=== PATIENT | male | born 1970 | race Caucasian/White ===

== ENCOUNTER 2018-04-28 13:41 | Inpatient (IN) ==
[2018-04-28] MEDS ORDERED: Isovue-370 500 ML INFUS..BTL IV ONE (14:17)
--- NOTE | 2018-04-28 14:17 | Emergency Department Note ---
Disposition Clinical Impression: Abscess of skin or subcutaneous tissue Qualifiers: Site of cutaneous abscess: neck Qualified Code(s): L02.11 - Cutaneous abscess of neck Cellulitis Qualifiers: Site of cellulitis: neck Qualified Code(s): L03.221 - Cellulitis of neck Disposition: Admitted As Inpatient Condition: Good Time of Disposition: 16:40 General Adult HPI - General Chief complaint: ED Skin/Abscess/Foreign Body Stated complaint: staph infection posterior neck Time Seen by Provider: 04/28/18 14:04 Source: patient Mode of arrival: ambulatory Limitations: no limitations Nursing Notes Reviewed: Yes Vital Signs Reviewed: Yes - History of Present Illness HPI Narrative: 48 yo male presents to the ED from home with an abscess on the back of his neck. He has a PMHx of [place] and previous staph infections. He went to his physician on Tuesday and was prescribed Bactrim and has been taking it as prescribed since then. He reports attempted drainage at the office on Tuesday and Tuesday without any fluid removed. He claims the abscess is not getting worse but it has not improved with antibiotics. He reports feeling chilled and sweating at home but has no recorded fevers. He denies chest pain, abdominal pain, N/V/D. He has had some shortness of breath that he attributes to pain. He also has had some throat pain but no trouble with swallowing. He denies numbness or tingling in his hands. Pain Scale: 3 - Related Data Home Medications Medication Instructions Recorded Confirmed Aspirin 81 mg PO DAILY 02/11/15 02/11/15 Atorvastatin Calcium 40 mg PO DAILY 02/11/15 02/11/15 Carvedilol 12.5 mg PO BID 02/11/15 02/11/15 Clopidogrel 75 mg PO DAILY 02/11/15 02/11/15 Losartan 25 mg PO DAILY 02/11/15 02/11/15 Allergies Allergy/AdvReac Type Severity Reaction Status Date / Time No Known Allergies Allergy Verified 04/28/18 13:43 All systems ED: reviewed and negative except as stated. Review of Systems: As Per HPI Constitutional: Reports: chills. Denies: fever, weakness Eyes: Denies: vision change ENT ED: Reports: throat pain Cardiovascular: Denies: chest pain, palpitations, dyspnea on exertion Respiratory: Denies: cough, dyspnea, wheezes Gastrointestinal: Denies: abdominal pain, nausea, vomiting Musculoskeletal: Reports: neck pain. Denies: back pain Integumentary: Denies: rash Neurological: Denies: headache, numbness, paresthesias, confusion Psychiatric: Denies: anxiety Endocrine: Denies: fatigue Hematological/Lymphatic: Denies: easy bleeding, lymphadenopathy Past Medical History - Past Medical History Medical history: Reports: coronary artery disease, hyperlipidemia, hypertension, myocardial infarction Psychiatric history: Reports: no psych history - Social History Smoking Status: Never smoker Smokeless Tobacco Status: No Alcohol use: Reports: occasionally Drug use: Reports: none Physical Exam - General Limitations: no limitations General appearance: alert, in no apparent distress - Head Head exam: atraumatic, normocephalic - Eye Eye exam: Present: normal appearance, PERRL, EOMI - ENT ENT exam: normal exam, normal oropharynx, mucous membranes moist - Neck Neck exam: Present: tenderness, other (large 13cm by 7.5cm area of erythema to posterior neck, indurated, with a scabbed over area centrally without active draineage). Absent: meningismus, lymphadenopathy - Chest Chest inspection: Present: normal inspection - Respiratory Respiratory exam: Present: normal lung sounds bilaterally. Absent: respiratory distress, wheezes - Cardiovascular Cardiovascular exam: Present: regular rate, normal rhythm - Abdominal Exam Abdominal exam: Present: soft, Non-Tender. Absent: distention, guarding, rebound, rigidity - Extremities Exam Extremities exam: Present: normal inspection. Absent: tenderness, pedal edema - Neurological Exam Neurological exam: Present: alert, oriented X3, CN II-XII intact - Psychiatric Psychiatric exam: Present: normal affect, normal mood - Skin Skin exam: Present: warm, dry, intact Course Vital Signs Temperature 99.1 F 04/28/18 13:43 Pulse Rate 91 04/28/18 13:43 Respiratory Rate 20 04/28/18 13:43 Blood Pressure 152/96 04/28/18 13:43 O2 Sat by Pulse Oximetry 97 04/28/18 13:43 Temperature 99.1 F 04/28/18 13:54 Pulse Rate 91 04/28/18 13:54 Respiratory Rate 20 04/28/18 13:54 Blood Pressure 152/96 04/28/18 13:54 O2 Sat by Pulse Oximetry 97 04/28/18 13:54 Oxygen Delivery Oxygen Delivery Room Air Medical Decision Making - MDM Narrative Medical decision making narrative: Due to the large area of erythema, area of infection, and failure of outpt antibiotics we will do a CT of the soft tissues of his neck looking for deeper abscess. We will also draw CBC, BMP, and blood cultures and give him a dose of vancomycin. The patient will likely be admitted for continued IV antibiotics. 1600 - lab work has returned unremarkable. Awaiting CT scan. 1625 - CT scan showed cellulitis along his posterior neck with a small abscess measuring appx [id number]. There is also an associated right mastoid effusion. Hospitalist has been paged for admission. 1640 - Dr. Alejandra has accepted the pt for IV abx. - Medical Records Medical records reviewed: Yes I reviewed the patient's medical records. - Lab Data Lab results reviewed: Yes I reviewed the patient's lab results. Result diagrams: 04/28/18 14:41 04/28/18 14:41 Lab Results 04/28/18 04/28/18 Range/Units 14:41 14:41 WBC 11.9 H (4.3-11.1) K/mcL RBC 4.85 (4.19-5.50) M/mcL Hgb 14.4 (12.9-16.9) g/dL Hct 41.5 (37.5-50.1) % MCV 85.6 (83.0-100.0) fL MCH 29.7 (28.0-33.3) pg MCHC 34.7 (31.6-35.5) g/dL RDW 12.6 (11.5-14.5) % Plt Count 206 (140-400) K/mcL MPV 9.5 (9.4-12.4) fL Immature Gran % 0.4 (0-4) % Seg Neutrophils % 72.9 % Lymphocytes % 12.7 % Monocytes % 10.1 % Eosinophils % 3.5 % Basophils % 0.4 % Neutrophils # 8.7 (1.6-8.9) K/mcL Lymphocytes # 1.5 (0.6-4.6) K/mcL Monocytes # 1.2 (0.0-1.3) K/mcL Eosinophils # 0.4 (0.0-0.6) K/mcL Basophils # 0.1 (0.0-0.2) K/mcL Sodium 135 L (136-145) mEq/L Potassium 4.0 (3.5-5.1) mEq/L Chloride 101 (98-107) mEq/L Carbon Dioxide 28 (23-29) mEq/L BUN 14 (6-20) mg/dL Creatinine 1.07 (0.70-1.30) mg/dL Est GFR ( Amer) > 60 (> 60) Est GFR (Non-Af Amer) > 60 (> 60) BUN/Creatinine Ratio 13 (6-26) Glucose 169 H (70-105) mg/dL Calculated Osmolality 284 (280-300) Calcium 9.6 (8.6-10.3) mg/dL - Radiology Data Radiology results reviewed: Yes I reviewed the patient's radiology results. Attestation Statement - Attestation Attestation: Resident Attestation: I examined this patient and my medical decision making was reviewed with the Resident Physician. I agree with the documented findings, disposition and treatment plan as described except to the extent set forth below. We independently had [id number] contact with the patient. Patient seen with resident physician Dr. Guillen (Senior Resident) and Dr. Meza (Eliezer Resident). Please see resident note for further details and disposit ionArley Jacobs presents today for evaluation of cellulitis the back of his neck. Significant induration. A did have I&D attempted at outside hospital without significant pus drainage. Patient was placed on Bactrim on Tuesday without any improvement. Bedside measuring shows 13 centimeters by 7.[address] scan will be performed to rule out abscess as well as other complication. Patient will be started on vancomycin. Patient will require admission first significant cellulitis that has failed outpatient management.
[2018-04-28 15:07] LABS: Basophils # 0.1 K/mcL (0.0-0.2); Basophils % 0.4 %; Eosinophils # 0.4 K/mcL (0.0-0.6); Eosinophils % 3.5 %; Hematocrit 41.5 % (37.5-50.1); Hemoglobin 14.4 g/dL (12.9-16.9); Immature Granulocytes % 0.4 % (0-4); Lymphocytes # 1.5 K/mcL (0.6-4.6); Lymphocytes % 12.7 %; Mean Corpuscular HGB Conc 34.7 g/dL (31.6-35.5); Mean Corpuscular Hemoglobin 29.7 pg (28.0-33.3); Mean Corpuscular Volume 85.6 fL (83.0-100.0); Mean Platelet Volume 9.5 fL (9.4-12.4); Monocytes # 1.2 K/mcL (0.0-1.3); Monocytes % 10.1 %; Neutrophils # 8.7 K/mcL (1.6-8.9); Platelet Count 206 K/mcL (140-400); Red Blood Count 4.85 M/mcL (4.19-5.50); Red Cell Distribution Width 12.6 % (11.5-14.5); Segmented Neutrophils % 72.9 %
[2018-04-28 15:27] LABS: BUN/Creatinine Ratio 13 (6-26); Blood Urea Nitrogen 14 mg/dL (6-20); Calcium 9.6 mg/dL (8.6-10.3); Carbon Dioxide 28 mEq/L (23-29); Chloride 101 mEq/L (98-107); Glucose 169 mg/dL (70-105); Osmolality,Calculated 284 (280-300); Sodium 135 mEq/L (136-145); eGFR For Non-African Americans > 60 (> 60)
[2018-04-28] MEDS ORDERED: *HR* FentaNYL (PF) 100 MCG/2 ML VIAL IVP ONE (16:40)
--- NOTE | 2018-04-28 16:59 | Internal Med History&Physical ---
Date of Encounter: 04/28/18 Time of Encounter: 16:56 Internal Medicine - H&P: HPI Chief complaint: neck ceelulitis Admitted From: Emergency Dept Plans for Post Hospital Care: Home History of present illness: Mr. Goodman is a 48 year old male Patient with history of morbid obesity, CAD had a angioplasty stent placement a bout 3 years ago, CMP EF 45%, hypertension, high cholesterol, prior staph infection patient was seen by primary physician in the office with the abscess in the back of his neck attempt drainage on Tuesday and then placed him on Bactrim and then repeat attempt of drainage on Tuesday but infection is not getting better patient is decided to come to the emergency room. Also has some chills and sweats CT of the neck shows extensive cellulitis but small abscess not enough for drainage patient started on vancomycin and is being admitted white count 11.9 labs unremarkable Past Med Surg Social Fam HX - Past Medical History Medical history: coronary artery disease, hyperlipidemia, hypertension, myocardial infarction Psychiatric history: no psych history - Social History Smoking Status: Never smoker Smokeless Tobacco Status: No Alcohol use: occasionally Drug use: none - Family History Mother Adopted: No Family Member Ethnicity: Non- Living Status: Still Living Hx Family Cardiac Disorders: No Hx Family Respiratory Disorders: No Hx Family Cancer: No Hx Family GI Disorders: No Hx Family Endocrine Disorder: No Hx Family Neuromuscular Disorders: No Hx Family Neurologic Disorders: No Hx Family HEENT Disorders: No Hx Family Autoimmune Disorders: No Internal Medicine - H&P: Meds Aspirin 81 mg PO DAILY 02/11/15 [History] Atorvastatin Calcium 40 mg PO DAILY 02/11/15 [History] Carvedilol 12.5 mg PO BID 02/11/15 [History] Clopidogrel 75 mg PO DAILY 02/11/15 [History] Losartan 25 mg PO DAILY 02/11/15 [History] Allergy/AdvReac Type Severity Reaction Status Date / Time No Known Allergies Allergy Verified 04/28/18 13:43 All Systems PM: A 10-system review of systems was performed and is negative for pertinent findings except as documented above in the HPI. - Constitutional Vitals: Temp Pulse Resp BP Pulse Ox 99.1 F 91 20 152/96 97 04/28/18 13:54 04/28/18 13:54 04/28/18 13:54 04/28/18 13:54 04/28/18 13:54 General appearance: Present: A&O X 3, obese Exam: done - Eye Eye exam: Present: PERRL, conjuntiva pink, sclera anicteric Pupils: Present: PERRL - Neck Neck exam general surgery: Present: tenderness Additional comments: cellulitis back of neck - Respiratory Respiratory exam: Present: CTAB. Absent: accessory muscle use, rales, rhonchi, wheezes - Cardiovascular Cardiovascular exam: Present: RRR, +S1, +S2. Absent: diastolic murmur, gallop, rubs, systolic murmur - Extremities Exam Extremities exam: Present: warm, radial pulses palpable and symmetrical. Absent: calf tenderness, cyanotic, pedal edema Internal Med - H&P Results - Labs CBC & Chem 7: 04/28/18 14:41 04/28/18 14:41 Labs: Short CBC 04/28/18 Range/Units 14:41 WBC 11.9 H (4.3-11.1) K/mcL Hgb 14.4 (12.9-16.9) g/dL Hct 41.5 (37.5-50.1) % Plt Count 206 (140-400) K/mcL Neutrophils # 8.7 (1.6-8.9) K/mcL BMP 04/28/18 14:41 Sodium 135 L Potassium 4.0 Chloride 101 Carbon Dioxide 28 BUN 14 Creatinine 1.07 Glucose 169 H Calcium 9.6 - Impressions ITS Impressions Soft Tissue Neck CT 04/28/18 14:17 IMPRESSION: 1. Extensive cellulitis along the posterior midline of the neck extending from the occiput down to the level of C5. There may be a small abscess noted along the dorsal midline of the skin, at the level of C1-C2 measuring approximately 6 x 5 x 5 mm. 2. There are several prominent bilateral posterior triangle lymph nodes, presumably reactive. 3. Right mastoid effusion. D/ / 04/28/2018 16:24:25 Chapincito Spicer MD / [facility] Interpreting Provider: Chapincito Spicer MD - Assessment and plan (1) Cellulitis Current Visit: Yes Status: Acute Assessment and plan: Extensive cellulitis with small abscess in the back of his neck there likely is secondary to staph infection patient started on vancomycin Qualifiers: Site of cellulitis: neck Qualified Code(s): L03.221 - Cellulitis of neck (2) CAD (coronary artery disease) Current Visit: Yes Status: Chronic Assessment and plan: No chest pain Qualifiers: Coronary Disease-Associated Artery/Lesion type: [place] artery [place] vs. transplanted heart: [place] heart Associated angina: without angina Qualified Code(s): I25.10 - Atherosclerotic heart disease of [place] coronary artery without angina pectoris (3) HTN (hypertension) Current Visit: Yes Status: Chronic Assessment and plan: Chronic and not well-controlled we will adjust home medication Qualifiers: Hypertension type: essential hypertension Qualified Code(s): I10 - Essential (primary) hypertension (4) Morbid obesity Current Visit: Yes Status: Chronic Assessment and plan: Chronic due to excess caloric intake (5) Hyperlipidemia Current Visit: Yes Status: Chronic Assessment and plan: Resume home medication Qualifiers: Hyperlipidemia type: pure hypercholesterolemia Qualified Code(s): E78.00 - Pure hypercholesterolemia, unspecified; E78.0 - Pure hypercholesterolemia (6) Abscess of skin or subcutaneous tissue Current Visit: Yes Status: Acute Assessment and plan: Patient started on vancomycin which check hemoglobin A1c make sure he is not diabetic Qualifiers: Site of cutaneous abscess: neck Qualified Code(s): L02.11 - Cutaneous abscess of neck - Time Spent With Patient Total time spent is greater than 50% in coordination of care (as documented) at patient's floor/unit and/or counseling patient:
[2018-04-28] MEDS ORDERED: Naloxone 0.4 MG/ML INJ IVP PRN (17:04)
[2018-04-28 20:03] LABS: Estimated Average Glucose 137 mg/dl; Hemoglobin A1C 6.4 %
[2018-04-28] MEDS: traMADol 50 MG TABLET PO PRN (20:20)
[2018-04-29] MEDS: Acetaminophen 325 MG TABLET PO PRN ×2 (00:11→15:57)
[2018-04-29 04:28] LABS: Hematocrit 38.6 % (37.5-50.1); Hemoglobin 13.1 g/dL (12.9-16.9); Mean Corpuscular HGB Conc 33.9 g/dL (31.6-35.5); Mean Corpuscular Hemoglobin 29.4 pg (28.0-33.3); Mean Corpuscular Volume 86.7 fL (83.0-100.0); Mean Platelet Volume 9.4 fL (9.4-12.4); Platelet Count 208 K/mcL (140-400); Red Blood Count 4.45 M/mcL (4.19-5.50); Red Cell Distribution Width 12.7 % (11.5-14.5)
[2018-04-29 04:48] LABS: Alanine Aminotransferase 23 Units/L (7-52); Albumin/Globulin Ratio 1.3 (1.1-2.2); Alkaline Phosphatase 58 Units/L (34-104); Aspartate Amino Transferase 13 Units/L (13-39); BUN/Creatinine Ratio 12 (6-26); Bilirubin,Total 0.7 mg/dL (0.3-1.0); Blood Urea Nitrogen 14 mg/dL (6-20); Calcium 9.2 mg/dL (8.6-10.3); Carbon Dioxide 26 mEq/L (23-29); Chloride 99 mEq/L (98-107); Chol/HDL Ratio 6.8 (0-4.9); Cholesterol 142 mg/dL (< 200); Glucose 150 mg/dL (70-105); HDL Cholesterol 21 mg/dL (40-59); Magnesium 1.8 mg/dL (1.6-2.6); Osmolality,Calculated 279 (280-300); Potassium 4.2 mEq/L (3.5-5.1); Sodium 133 mEq/L (136-145); Triglycerides 445 mg/dL (< 150); eGFR For Non-African Americans > 60 (> 60)
[2018-04-29] MEDS: *HR* Enoxaparin 40 MG/0.4 ML SYRINGE SQ SCH (05:16)
[2018-04-29] MEDS: traMADol 50 MG TABLET PO PRN ×2 (07:07→20:00)
[2018-04-29] MEDS: Aspirin Enteric Coated 81 MG Tablet PO SCH (09:48)
--- NOTE | 2018-04-29 15:08 | Internal Med Progress Note ---
Hospitalist Progress Note - Encounter Date of Encounter: 04/29/18 Time of Encounter: 15:06 - Subjective Interval History: Pt seen and examined in the room, he has no complaints. - Exam Vitals: Temp Pulse Resp BP Pulse Ox 100.6 F H 91 16 135/72 95 04/29/18 14:53 04/29/18 14:53 04/29/18 14:53 04/29/18 14:53 04/29/18 14:53 Exam: PHYSICAL EXAMINATION: GENERAL APPEARANCE: The patient is alert, oriented and in no acute distress. HEENT: Head is normocephalic. The sinuses are nontender. Pupils are equal and reactive. The nares are patent. Oropharynx clear without lesions. NECK: a large lump behind the neck noted. HEART: Regular rate and rhythm. LUNGS: No crackles or wheezes are heard. ABDOMEN: Soft, nontender, nondistended with good bowel sounds heard. Inguinal area is normal. EXTREMITIES: Without cyanosis, clubbing or edema. NEUROLOGICAL: Gross nonfocal. SKIN: Warm and dry without any rash. - Assessment and Plan (1) Cellulitis Current Visit: Yes Status: Acute Assessment and Plan: 48 year old male presented with a large mass-like lesion behind the neck for week, has been seen by PCP, oral antibiotics was prescribed, incision and drainage was attempted, however, no improvement. CT of the head and neck showed diffuse skin and subcutaneous tissue inflammation/swelling, a small sized fluid collection was also detected. - Cellulitis was suspected, we will continue current antibiotics with cefepime and vancomycin. - ENT was consulted, possibly tissue biopsy may needed. - ID was consulted. (2) CAD (coronary artery disease) Current Visit: No Status: Chronic Assessment and Plan: Patient has no chest pain, continue home medication for CAD, continue risk factor modification including BP control, weight control, cholesterol control. (3) HTN (hypertension) Current Visit: No Status: Chronic Assessment and Plan: BP controlled, continue home medications. (4) Morbid obesity Current Visit: No Status: Chronic Assessment and Plan: Weight control. (5) Hyperlipidemia Current Visit: No Status: Chronic Assessment and Plan: Statin dose increased. DVT Prophylaxis: Lovenox. - Time Spent with Patient Total time spent is greater than 50% in coordination of care (as documented) at patient's floor/unit and/or counseling patient: Greater than 35 minutes Plan of Care Discussed with: patient Internal Medicine: Result - Labs CBC & Chem 7: 04/29/18 03:29 04/29/18 03:29 Labs: Short CBC 04/28/18 04/29/18 Range/Units 14:41 03:29 WBC 11.9 H 13.4 H (4.3-11.1) K/mcL Hgb 14.4 13.1 (12.9-16.9) g/dL Hct 41.5 38.6 (37.5-50.1) % Plt Count 206 208 (140-400) K/mcL Neutrophils # 8.7 (1.6-8.9) K/mcL BMP 04/28/18 04/29/18 14:41 03:29 Sodium 135 L 133 L Potassium 4.0 4.2 Chloride 101 99 Carbon Dioxide 28 26 BUN 14 14 Creatinine 1.07 1.15 Glucose 169 H 150 H Calcium 9.6 9.2 Liver Function 04/29/18 Range/Units 03:29 Total Bilirubin 0.7 (0.3-1.0) mg/dL AST 13 (13-39) Units/L ALT 23 (7-52) Units/L Alkaline Phosphatase 58 (34-104) Units/L Albumin 4.0 (3.5-5.7) g/dL - Impressions Impressions Soft Tissue Neck CT 04/28/18 14:17 IMPRESSION: 1. Extensive cellulitis along the posterior midline of the neck extending from the occiput down to the level of C5. There may be a small abscess noted along the dorsal midline of the skin, at the level of C1-C2 measuring approximately 6 x 5 x 5 mm. 2. There are several prominent bilateral posterior triangle lymph nodes, presumably reactive. 3. Right mastoid effusion. D/ / 04/28/2018 16:24:25 Chapincito Spicer MD / located within [facility] Interpreting Provider: Chapincito Spicer MD Consult Discharge Plan - Plan Referrals: Ruperto Clark MD [Primary Care Provider] - (1) Cellulitis Qualifiers: Site of cellulitis: neck Qualified Code(s): L03.221 - Cellulitis of neck (2) CAD (coronary artery disease) Qualifiers: Coronary Disease-Associated Artery/Lesion type: [place] artery [place] vs. transplanted heart: [place] heart Associated angina: without angina Qualified Code(s): I25.10 - Atherosclerotic heart disease of [place] coronary artery without angina pectoris (3) HTN (hypertension) Qualifiers: Hypertension type: essential hypertension Qualified Code(s): I10 - Essential (primary) hypertension (5) Hyperlipidemia Qualifiers: Hyperlipidemia type: pure hypercholesterolemia Qualified Code(s): E78.00 - Pure hypercholesterolemia, unspecified; E78.0 - Pure hypercholesterolemia
[2018-04-29] MEDS: Cefepime HCl 2,000 MG in 0.9 % Sodium Chloride Mini Bag 100 ML IVPB SCH (18:51)
--- NOTE | 2018-04-29 19:04 | ENT - Consult Note ---
Date of Encounter: 04/29/18 Time of Encounter: 19:01 Assessment and Plan (1) Abscess of skin or subcutaneous tissue Current Visit: Yes Status: Acute Small abscess just to the right of the midline of the posterior neck, this area with I&D to the bedside. Please see procedure note. Culture was taken. We will await results but likely will not grow anything is patient has been on multiple antibiotics prior to I&D being performed. Recommend continuing antibiotics and awaiting culture with directed antibiotics if there is growth. This mainly appears a cellulitis. Patient does not know of any trauma to this area. Consider abrasion from having his hair trimmed causing this skin reaction and infection. Would consider placing patient on steroids to reduce the swelling and inflammation but I will leave this to infectious disease will may see him as a likely will want to follow his white count. Qualifiers: Site of cutaneous abscess: neck Qualified Code(s): L02.11 - Cutaneous abscess of neck (2) Cellulitis Current Visit: Yes Status: Acute Area of induration and erythema was demarcated with a skin marker. We will continue to follow for improvement. Qualifiers: Site of cellulitis: neck Qualified Code(s): L03.221 - Cellulitis of neck History of Present Illness Consult date: 04/29/18 Reason for ENT Consult: neck mass (Patient is a 48-year-old male that presented in the ER secondary to swelling of the back of the neck and associated pain. Patient with increased redness and pain for approximately 4 days. Patient presented to a DrArley at [facility] who originally tried incise and drain this area without any purulent drainage obtained. Patient was placed on Bactrim and he presented again with worsening. Patient then went to the emergency room for further evaluation and treatment. CT of the neck was performed which showed significant cellulitis and soft tissue swelling with a small focal abscess that was left in the centimeter measuring approximately 5 mm in greatest dimension. I was consult for evaluation and possible incision and drainage. ID was also asked to see this patient. Plate patient has been placed on antibiotic since he has been admitted. Patient states there is no worsening or improvement in his pain or swelling. Patient denies any fevers. Patient denies any trauma to the area or any bug bites. Patient does not know of any inciting factor.) Past Med Surg Social Fam HX - Past Medical History Medical history: coronary artery disease, hyperlipidemia, hypertension, myocardial infarction Psychiatric history: no psych history - Past Surgical History Additional surgical history: STENT - Social History Smoking Status: Never smoker Smokeless Tobacco Status: No Alcohol use: occasionally Drug use: none - Family History Mother Adopted: No Family Member Ethnicity: Non- Living Status: Still Living Hx Family Cardiac Disorders: No Hx Family Respiratory Disorders: No Hx Family Cancer: No Hx Family GI Disorders: No Hx Family Endocrine Disorder: No Hx Family Neuromuscular Disorders: No Hx Family Neurologic Disorders: No Hx Family HEENT Disorders: No Hx Family Autoimmune Disorders: No Medications and Allergies Aspirin [Adult Aspirin Regimen] 81 mg PO DAILY 02/11/15 [History] Carvedilol 12.5 mg PO BID 02/11/15 [History] Atorvastatin Calcium [Lipitor] 20 mg PO DAILY 04/28/18 [History] Fenofibrate [Tricor] 54 mg PO DAILY 04/28/18 [History] Sulfamethoxazole/Trimeth DS [Bactrim Ds] 1 tab PO BID 04/28/18 [History] Allergy/AdvReac Type Severity Reaction Status Date / Time No Known Allergies Allergy Verified 04/28/18 13:43 ENT - ROS - Constitutional Constitutional ROS: as per HPI - EENT Nose, mouth and throat: neck mass, neck pain - Cardiovascular Cardiovascular ROS IM: no chest pain - Respiratory no hemoptysis, no dyspnea on exertion, no stridor - Neurological Neurological ROS: no disequilibrium, no vertigo ENT Exam Initial Vital Signs Temp Pulse Resp BP Pulse Ox 99.1 F 91 20 152/96 97 04/28/18 13:43 04/28/18 13:43 04/28/18 13:43 04/28/18 13:43 04/28/18 13:43 Exam Initial Vital Signs Temp Pulse Resp BP Pulse Ox 99.1 F 91 20 152/96 97 04/28/18 13:43 04/28/18 13:43 04/28/18 13:43 04/28/18 13:43 04/28/18 13:43 - General physical appearance well developed, well nourished, obese - Eyes PERRL, normal ocular movement - ENT normal pinna, normal nares, CN 2-12 grossly intact, Other - Neck trachea midline, other (Induration and erythema of the posterior neck area measuring approximately 10 cm x 6 cm. Was an area scale to the right of the midline where there was some minimal fluctuance. This area was drained at the bedside.) - Respiratory normal expansion, normal respiratory effort - Neurologic CN 2-12 grossly intact, normal coordination, normal sensation - Psychiatric oriented to time, oriented to person, oriented to place, speech is normal Results - Labs 04/29/18 03:29 04/29/18 03:29 Abnormal lab results WBC 13.4 K/mcL (4.3-11.1) H 04/29/18 03:29 Sodium 133 mEq/L (136-145) L 04/29/18 03:29 Glucose 150 mg/dL (70-105) H 04/29/18 03:29 Hemoglobin A1c 6.4 % (-5.6) H 04/28/18 17:54 Calculated Osmolality 279 (280-300) L 04/29/18 03:29 Triglycerides 445 mg/dL (< 150) H 04/29/18 03:29 HDL Cholesterol 21 mg/dL (40-59) L 04/29/18 03:29 Cholesterol/HDL Ratio 6.8 (0-4.9) H 04/29/18 03:29 Diabetes panel 04/28/18 04/29/18 Range/Units 17:54 03:29 Sodium 133 L (136-145) mEq/L Potassium 4.2 (3.5-5.1) mEq/L Chloride 99 (98-107) mEq/L Carbon Dioxide 26 (23-29) mEq/L BUN 14 (6-20) mg/dL Creatinine 1.15 (0.70-1.30) mg/dL Glucose 150 H (70-105) mg/dL Hemoglobin A1c 6.4 H ( - 5.6) % Calcium 9.2 (8.6-10.3) mg/dL AST 13 (13-39) Units/L ALT 23 (7-52) Units/L Alkaline Phosphatase 58 (34-104) Units/L Albumin 4.0 (3.5-5.7) g/dL Triglycerides 445 H (< 150) mg/dL HDL Cholesterol 21 L (40-59) mg/dL Calcium panel 04/29/18 Range/Units 03:29 Calcium 9.2 (8.6-10.3) mg/dL Albumin 4.0 (3.5-5.7) g/dL Pituitary panel 04/29/18 Range/Units 03:29 Sodium 133 L (136-145) mEq/L Potassium 4.2 (3.5-5.1) mEq/L Chloride 99 (98-107) mEq/L Carbon Dioxide 26 (23-29) mEq/L BUN 14 (6-20) mg/dL Creatinine 1.15 (0.70-1.30) mg/dL Glucose 150 H (70-105) mg/dL Calcium 9.2 (8.6-10.3) mg/dL Adrenal panel 04/29/18 Range/Units 03:29 Sodium 133 L (136-145) mEq/L Potassium 4.2 (3.5-5.1) mEq/L Chloride 99 (98-107) mEq/L Carbon Dioxide 26 (23-29) mEq/L BUN 14 (6-20) mg/dL Creatinine 1.15 (0.70-1.30) mg/dL Glucose 150 H (70-105) mg/dL Calcium 9.2 (8.6-10.3) mg/dL Total Bilirubin 0.7 (0.3-1.0) mg/dL AST 13 (13-39) Units/L ALT 23 (7-52) Units/L Alkaline Phosphatase 58 (34-104) Units/L Albumin 4.0 (3.5-5.7) g/dL All other labs normal. Consult Discharge Plan - Plan Referrals: Ruperto Clark MD [Primary Care Provider] -
--- NOTE | 2018-04-29 19:14 | ENT - Procedure Note ---
Date of procedure: 04/29/18 Procedure: Preoperative diagnosis: Posterior neck cellulitis, posterior neck abscess Postop diagnosis: Same Procedure: Incision and drainage of posterior cervical abscess Specimen: Aerobic and anaerobic culture posterior neck Blood loss: 2 mL Procedure in detail: Risks, benefits, alternatives to incision and drainage of posterior neck abscess was discussed with the patient. Verbal consent was cleaned and prepped with iodine swabs. Due to patient unable to sense palpation in the area of induration, decision was made not to use local. 15 blade was then used to make a small stab incision over the area of induration which was just under a necrotic appearing scale that was likely from previous incision and drainage. Thick purulent drainage was obtained. Aerobic and anaerobic cultures were obtained of this drainage. Hemostat was then use to make sure there were no loculations. Abscess was very superficial. There was some oozing from the incision and drainage site. Silver nitrate was used to help allow for hemostasis. 4 x 4 gauze was then placed over the I&D site. Patient tolerated the procedure very well. Anesthesia: none Was there an web marketing assistant present: No Condition: stable
[2018-04-30 03:19] LABS: Basophils # 0.1 K/mcL (0.0-0.2); Basophils % 0.5 %; Eosinophils # 0.4 K/mcL (0.0-0.6); Eosinophils % 3.6 %; Hematocrit 38.7 % (37.5-50.1); Hemoglobin 13.2 g/dL (12.9-16.9); Immature Granulocytes % 0.9 % (0-4); Lymphocytes # 1.7 K/mcL (0.6-4.6); Lymphocytes % 15.1 %; Mean Corpuscular HGB Conc 34.1 g/dL (31.6-35.5); Mean Corpuscular Hemoglobin 29.4 pg (28.0-33.3); Mean Corpuscular Volume 86.2 fL (83.0-100.0); Monocytes # 1.1 K/mcL (0.0-1.3); Monocytes % 9.9 %; Platelet Count 214 K/mcL (140-400); Red Blood Count 4.49 M/mcL (4.19-5.50); Red Cell Distribution Width 12.5 % (11.5-14.5)
[2018-04-30 03:43] LABS: BUN/Creatinine Ratio 15 (6-26); Blood Urea Nitrogen 17 mg/dL (6-20); Calcium 9.4 mg/dL (8.6-10.3); Carbon Dioxide 26 mEq/L (23-29); Chloride 100 mEq/L (98-107); Glucose 142 mg/dL (70-105); Osmolality,Calculated 280 (280-300); Potassium 4.2 mEq/L (3.5-5.1); Sodium 133 mEq/L (136-145); eGFR For Non-African Americans > 60 (> 60)
[2018-04-30] MEDS: *HR* Enoxaparin 40 MG/0.4 ML SYRINGE SQ SCH (04:48)
[2018-04-30] MEDS: Cefepime HCl 2,000 MG in 0.9 % Sodium Chloride Mini Bag 100 ML IVPB SCH ×3 (04:49→17:30)
[2018-04-30] MEDS: Aspirin Enteric Coated 81 MG Tablet PO SCH (08:57)
--- NOTE | 2018-04-30 10:34 | Internal Med Progress Note ---
Hospitalist Progress Note - Encounter Date of Encounter: 04/30/18 Time of Encounter: 10:32 - Subjective Interval History: Pt seen and examined in the room. Had I+D yesterday by ENT. 1 episode of low fever overnight. Currently afebrile. Patient denies chills, anorexia, or night sweats. He also reported he frequently travels to [place] and [place]. - Exam Vitals: Temp Pulse Resp BP Pulse Ox 98.6 F 82 15 113/74 96 04/30/18 10:26 04/30/18 10:26 04/30/18 10:26 04/30/18 10:26 04/30/18 10:26 Exam: PHYSICAL EXAMINATION: GENERAL APPEARANCE: The patient is alert, oriented and in no acute distress. HEENT: Head is normocephalic. The sinuses are nontender. Pupils are equal and reactive. The nares are patent. Oropharynx clear without lesions. NECK: a large lump behind the neck noted with skin induration and a small amount of yellow drainage.. HEART: Regular rate and rhythm. LUNGS: No crackles or wheezes are heard. ABDOMEN: Soft, nontender, nondistended with good bowel sounds heard. Inguinal area is normal. EXTREMITIES: Without cyanosis, clubbing or edema. NEUROLOGICAL: Gross nonfocal. SKIN: Warm and dry without any rash. - Assessment and Plan (1) Cellulitis Current Visit: Yes Status: Acute Assessment and Plan: 48 year old male presented with a large mass-like lesion behind the neck for week, has been seen by PCP, oral antibiotics was prescribed, incision and drainage was attempted, however, no improvement. CT of the head and neck showed diffuse skin and subcutaneous tissue inflammation/swelling, a small sized fluid collection was also detected. - Cellulitis was suspected, cefepime and vancomycin started, pending blood cultures. However, pt still having persistent leukocytosis and episodic fever. Doxycycline was added to cover uncommon skin infection such as brucellosis. - ENT was consulted, bedside incision and drainage performed on 04/29/2018, samples sent for culture. Appreciate help. - ID was consulted. Will see the patient tomorrow morning. Appreciate input. - Based on patient travel history, cutaneous fungal infection was also suspected, tests for 1,3-glucan, histoplasmosis and bastomycosis also ordered. (2) CAD (coronary artery disease) Current Visit: No Status: Chronic Assessment and Plan: Patient has no chest pain, continue home medication for CAD including aspirin and Plavix, continue risk factor modification including BP control, weight control, cholesterol control. (3) HTN (hypertension) Current Visit: No Status: Chronic Assessment and Plan: BP controlled, continue home medications. (4) Morbid obesity Current Visit: No Status: Chronic Assessment and Plan: Weight control. (5) Hyperlipidemia Current Visit: No Status: Chronic Assessment and Plan: Statin dose increased. (6) Diabetes mellitus Current Visit: No Status: Chronic Assessment and Plan: A1c 6.4, diabetes education discussed with patient, diet and weight control. may need start pt on metformin. this can be started by PCP. DVT Prophylaxis: Lovenox - Time Spent with Patient Total time spent is greater than 50% in coordination of care (as documented) at patient's floor/unit and/or counseling patient: Greater than 35 minutes Plan of Care Discussed with: patient Internal Medicine: Result - Labs CBC & Chem 7: 04/30/18 03:10 04/30/18 03:10 Labs: Short CBC 04/30/18 Range/Units 03:10 WBC 11.5 H (4.3-11.1) K/mcL Hgb 13.2 (12.9-16.9) g/dL Hct 38.7 (37.5-50.1) % Plt Count 214 (140-400) K/mcL Neutrophils # 8.0 (1.6-8.9) K/mcL BMP 04/30/18 03:10 Sodium 133 L Potassium 4.2 Chloride 100 Carbon Dioxide 26 BUN 17 Creatinine 1.11 Glucose 142 H Calcium 9.4 Consult Discharge Plan - Plan Referrals: Ruperto Clark MD [Primary Care Provider] - (1) Cellulitis Qualifiers: Site of cellulitis: neck Qualified Code(s): L03.221 - Cellulitis of neck (2) CAD (coronary artery disease) Qualifiers: Coronary Disease-Associated Artery/Lesion type: [place] artery [place] vs. transplanted heart: [place] heart Associated angina: without angina Qualified Code(s): I25.10 - Atherosclerotic heart disease of [place] coronary artery without angina pectoris (3) HTN (hypertension) Qualifiers: Hypertension type: essential hypertension Qualified Code(s): I10 - Essential (primary) hypertension (5) Hyperlipidemia Qualifiers: Hyperlipidemia type: pure hypercholesterolemia Qualified Code(s): E78.00 - Pure hypercholesterolemia, unspecified; E78.0 - Pure hypercholesterolemia (6) Diabetes mellitus Qualifiers: Diabetes mellitus type: type 2 Diabetes mellitus nursing home insulin use: without nursing home use Diabetes mellitus complication status: without complication Qualified Code(s): E11.9 - Type 2 diabetes mellitus without complications
[2018-04-30] MEDS: Doxycycline 100 MG CAPSULE PO SCH (20:36)
[2018-05-01 02:45] LABS: Basophils # 0.1 K/mcL (0.0-0.2); Basophils % 0.6 %; Eosinophils # 0.4 K/mcL (0.0-0.6); Eosinophils % 4.6 %; Hematocrit 38.2 % (37.5-50.1); Hemoglobin 12.9 g/dL (12.9-16.9); Immature Granulocytes % 1.2 % (0-4); Lymphocytes # 1.8 K/mcL (0.6-4.6); Lymphocytes % 19.5 %; Mean Corpuscular HGB Conc 33.8 g/dL (31.6-35.5); Mean Corpuscular Hemoglobin 29.3 pg (28.0-33.3); Mean Corpuscular Volume 86.6 fL (83.0-100.0); Mean Platelet Volume 9.1 fL (9.4-12.4); Monocytes # 0.8 K/mcL (0.0-1.3); Monocytes % 9.2 %; Neutrophils # 5.8 K/mcL (1.6-8.9); Platelet Count 226 K/mcL (140-400); Red Blood Count 4.41 M/mcL (4.19-5.50); Red Cell Distribution Width 12.2 % (11.5-14.5); Segmented Neutrophils % 64.9 %
[2018-05-01 03:03] LABS: BUN/Creatinine Ratio 13 (6-26); Blood Urea Nitrogen 14 mg/dL (6-20); Calcium 9.2 mg/dL (8.6-10.3); Carbon Dioxide 28 mEq/L (23-29); Chloride 101 mEq/L (98-107); Glucose 123 mg/dL (70-105); Osmolality,Calculated 282 (280-300); Potassium 4.2 mEq/L (3.5-5.1); Sodium 135 mEq/L (136-145); eGFR For Non-African Americans > 60 (> 60)
[2018-05-01] MEDS: *HR* Enoxaparin 40 MG/0.4 ML SYRINGE SQ SCH (06:12)
[2018-05-01] MEDS: Cefepime HCl 2,000 MG in 0.9 % Sodium Chloride Mini Bag 100 ML IVPB SCH ×2 (06:12→17:37)
[2018-05-01] MEDS: Aspirin Enteric Coated 81 MG Tablet PO SCH (08:06)
[2018-05-01] MEDS: Doxycycline 100 MG CAPSULE PO SCH ×2 (08:07→20:27)
--- NOTE | 2018-05-01 10:35 | ENT - Progress Note ---
<Lena Hernandez - Last Filed: 05/01/18 12:03> Date of Encounter: 05/01/18 Time of Encounter: 10:33 - Assessment and Plan (1) Abscess of skin or subcutaneous tissue Current Visit: Yes Status: Acute Patient seen and examined at bedside today. Patient with continued induration noted to posterior neck. Small amount of purulent drainage expressed from previous I&D site. Serous fluid draining from multiple small openings on left side of neck. No major areas of fluctuance noted. No further intervention recommended at this time. WBC count has decreased and was WNL at last draw. Preliminary culture demonstrates gram positive cocci. Recommend continued IV antibiotics per ID recommendations at this time. Steroids would aid in decreasin g inflammation however will allow I&D to determine final decision for steroids. Qualifiers: Site of cutaneous abscess: neck Qualified Code(s): L02.11 - Cutaneous abscess of neck (2) Cellulitis Current Visit: Yes Status: Acute Area of induration and erythema was again demarcated with a skin marker, as previous marking was partially washed away. We will continue to follow for improvement. Continue IV antibiotics per recommendations of ID at this time. Qualifiers: Site of cellulitis: neck Qualified Code(s): L03.221 - Cellulitis of neck Subjective Patient reports: feels better, pain is less Objective Initial Vital Signs Temp Pulse Resp BP Pulse Ox 99.1 F 91 20 152/96 97 04/28/18 13:43 04/28/18 13:43 04/28/18 13:43 04/28/18 13:43 04/28/18 13:43 - General physical appearance well developed, well nourished, no distress - Eyes PERRL, normal ocular movement - ENT normal nares, normal mucosa, CN 2-12 grossly intact - Neck trachea midline, other (Area of Induration and erythema of the posterior neck measuring approximately 10 cm x 5.5 cm noted. Small amount of purulent drainage expressed from previous right I&D site. Small amount of serous drainage noted to left side of neck. ) - Respiratory normal expansion, normal respiratory effort - Neurologic CN 2-12 grossly intact, normal coordination - Psychiatric oriented to time, oriented to person, oriented to place, speech is normal - Labs 05/01/18 02:27 05/01/18 02:27 Diabetes panel 05/01/18 Range/Units 02:27 Sodium 135 L (136-145) mEq/L Potassium 4.2 (3.5-5.1) mEq/L Chloride 101 (98-107) mEq/L Carbon Dioxide 28 (23-29) mEq/L BUN 14 (6-20) mg/dL Creatinine 1.05 (0.70-1.30) mg/dL Glucose 123 H (70-105) mg/dL Calcium 9.2 (8.6-10.3) mg/dL Calcium panel 05/01/18 Range/Units 02:27 Calcium 9.2 (8.6-10.3) mg/dL Pituitary panel 05/01/18 Range/Units 02:27 Sodium 135 L (136-145) mEq/L Potassium 4.2 (3.5-5.1) mEq/L Chloride 101 (98-107) mEq/L Carbon Dioxide 28 (23-29) mEq/L BUN 14 (6-20) mg/dL Creatinine 1.05 (0.70-1.30) mg/dL Glucose 123 H (70-105) mg/dL Calcium 9.2 (8.6-10.3) mg/dL Adrenal panel 05/01/18 Range/Units 02:27 Sodium 135 L (136-145) mEq/L Potassium 4.2 (3.5-5.1) mEq/L Chloride 101 (98-107) mEq/L Carbon Dioxide 28 (23-29) mEq/L BUN 14 (6-20) mg/dL Creatinine 1.05 (0.70-1.30) mg/dL Glucose 123 H (70-105) mg/dL Calcium 9.2 (8.6-10.3) mg/dL Consult Discharge Plan - Plan Referrals: Ruperto Clark MD [Primary Care Provider] - <Bea Ferrara - Last Filed: 05/01/18 18:01> Date of Encounter: 05/01/18 - Assessment and Plan (1) Abscess of skin or subcutaneous tissue Current Visit: Yes Status: Acute The history, physical exam, and medical decision making was performed in conjunction with the nurse practioner who saw the patient at the bedside prior to my evaluation. I physically and actively performed the examination and medical decision making. I have verified the accuracy of the Nurse practioners documentation with regards to communicating my history, physical exam findings, and medical decision making. Patient with spontaneously draining abscess in the posterior neck. The area surrounding this was milked to help release any retained drainage. The drainage was cloudy but not thickened purulent like drained 2 days ago. Culture was reviewed which showed gram-positive cocci. Awaiting final culture sensitivities. Do not feel any other areas of fluctuance to be drained at this time. Will reassess patient's cellulitis tomorrow. Qualifiers: Site of cutaneous abscess: neck Qualified Code(s): L02.11 - Cutaneous abscess of neck (2) Cellulitis Current Visit: Yes Status: Acute Qualifiers: Site of cellulitis: neck Qualified Code(s): L03.221 - Cellulitis of neck Objective Initial Vital Signs Temp Pulse Resp BP Pulse Ox 99.1 F 91 20 152/96 97 04/28/18 13:43 04/28/18 13:43 04/28/18 13:43 04/28/18 13:43 04/28/18 13:43 - Labs 05/01/18 02:27 05/01/18 02:27 Diabetes panel 05/01/18 Range/Units 02:27 Sodium 135 L (136-145) mEq/L Potassium 4.2 (3.5-5.1) mEq/L Chloride 101 (98-107) mEq/L Carbon Dioxide 28 (23-29) mEq/L BUN 14 (6-20) mg/dL Creatinine 1.05 (0.70-1.30) mg/dL Glucose 123 H (70-105) mg/dL Calcium 9.2 (8.6-10.3) mg/dL Calcium panel 05/01/18 Range/Units 02:27 Calcium 9.2 (8.6-10.3) mg/dL Pituitary panel 05/01/18 Range/Units 02:27 Sodium 135 L (136-145) mEq/L Potassium 4.2 (3.5-5.1) mEq/L Chloride 101 (98-107) mEq/L Carbon Dioxide 28 (23-29) mEq/L BUN 14 (6-20) mg/dL Creatinine 1.05 (0.70-1.30) mg/dL Glucose 123 H (70-105) mg/dL Calcium 9.2 (8.6-10.3) mg/dL Adrenal panel 05/01/18 Range/Units 02:27 Sodium 135 L (136-145) mEq/L Potassium 4.2 (3.5-5.1) mEq/L Chloride 101 (98-107) mEq/L Carbon Dioxide 28 (23-29) mEq/L BUN 14 (6-20) mg/dL Creatinine 1.05 (0.70-1.30) mg/dL Glucose 123 H (70-105) mg/dL Calcium 9.2 (8.6-10.3) mg/dL
--- NOTE | 2018-05-01 10:59 | Internal Med Progress Note ---
Hospitalist Progress Note - Encounter Date of Encounter: 05/01/18 Time of Encounter: 10:56 - Subjective Interval History: Feeling slight better and neck pain and stiffness. Still has pain in the neck. Review of the lab. Talk to ENT team. Patient denies fever chills nausea vomiting headache dizziness chest pain shortness of breath cough urinary bowel complaint - Exam Vitals: Temp Pulse Resp BP Pulse Ox 98.5 F 84 17 120/68 95 05/01/18 10:45 05/01/18 10:45 05/01/18 10:45 05/01/18 10:45 05/01/18 10:45 Exam: PHYSICAL EXAMINATION: GENERAL APPEARANCE: The patient is alert, oriented and in no acute distress. HEENT: PERRLA EOMI NECK: Posterior neck -induration and erythema measuring approximately 10 cm into 5 cm with almost no fluctuation. Not having active fluid bruising. Neck supple and trachea midline. HEART: Regular rate and rhythm. LUNGS: Clear to auscultation bilaterally ABDOMEN: Soft, nontender, nondistended with good bowel sounds heard. EXTREMITIES: Without cyanosis, clubbing or edema. NEUROLOGICAL: No focal neurological deficit. - Assessment and Plan (1) Cellulitis Current Visit: Yes Status: Acute Assessment and Plan: In the neck, failed outpatient therapy. Continue cefepime and vancomycin. Blood culture gram-positive cocci but awaiting for further sensitivity. As patient is still had spiking fever therefore previous attending provider consulted ID specialist and added doxycycline.. Awaiting for ID input. No fever notice overnight. ENT on board and discussed plan. Will continue IV antibiotic for now and keep on monitoring the patient. Pain management. Incision and drainage was performed on 04/29/2018. - Based on patient travel history, cutaneous fungal infection was also suspected, tests for 1,3-glucan, histoplasmosis and bastomycosis also ordered- awaiting report. (2) CAD (coronary artery disease) Current Visit: No Status: Chronic Assessment and Plan: Stable, continue home medication for CAD including aspirin and Plavix, continue risk factor modification including BP control, weight control, cholesterol control. (3) HTN (hypertension) Current Visit: No Status: Chronic Assessment and Plan: BP controlled, continue home medications. (4) Morbid obesity Current Visit: No Status: Chronic Assessment and Plan: Weight control. (5) Hyperlipidemia Current Visit: No Status: Chronic Assessment and Plan: Raised triglyceride level therefore increase his statin dose. (6) Diabetes mellitus Current Visit: No Status: Chronic Assessment and Plan: A1c 6.4, diabetes education discussed with patient, diet and weight control. may need start pt on metformin. this can be started by PCP. DVT Prophylaxis: Lovenox - Time Spent with Patient Total time spent is greater than 50% in coordination of care (as documented) at patient's floor/unit and/or counseling patient: 25 - 35 minutes Plan of Care Discussed with: patient (Discuss plan with nursing staff and ENT team) Internal Medicine: Result - Labs CBC & Chem 7: 05/01/18 02:27 05/01/18 02:27 Labs: Short CBC 05/01/18 Range/Units 02:27 WBC 9.0 (4.3-11.1) K/mcL Hgb 12.9 (12.9-16.9) g/dL Hct 38.2 (37.5-50.1) % Plt Count 226 (140-400) K/mcL Neutrophils # 5.8 (1.6-8.9) K/mcL BMP 05/01/18 02:27 Sodium 135 L Potassium 4.2 Chloride 101 Carbon Dioxide 28 BUN 14 Creatinine 1.05 Glucose 123 H Calcium 9.2 Consult Discharge Plan - Plan Referrals: Ruperto Clark MD [Primary Care Provider] - (1) Cellulitis Qualifiers: Qualified Code(s): L03.221 - Cellulitis of neck (2) CAD (coronary artery disease) Qualifiers: Qualified Code(s): I25.10 - Atherosclerotic heart disease of [place] coronary artery without angina pectoris (3) HTN (hypertension) Qualifiers: Qualified Code(s): I10 - Essential (primary) hypertension (5) Hyperlipidemia Qualifiers: Qualified Code(s): E78.00 - Pure hypercholesterolemia, unspecified; E78.0 - Pure hypercholesterolemia (6) Diabetes mellitus Qualifiers: Qualified Code(s): E11.9 - Type 2 diabetes mellitus without complications
[2018-05-01] MEDS: traMADol 50 MG TABLET PO PRN ×2 (11:35→18:14)
[2018-05-02] MEDS: Cefepime HCl 2,000 MG in 0.9 % Sodium Chloride Mini Bag 100 ML IVPB SCH (05:52)
[2018-05-02] MEDS: *HR* Enoxaparin 40 MG/0.4 ML SYRINGE SQ SCH (05:53)
[2018-05-02] MEDS: Aspirin Enteric Coated 81 MG Tablet PO SCH (07:36)
[2018-05-02] MEDS: Doxycycline 100 MG CAPSULE PO SCH (07:36)
--- NOTE | 2018-05-02 08:29 | ENT - Progress Note ---
Date of Encounter: 05/02/18 Time of Encounter: 08:30 - Assessment and Plan (1) Abscess of skin or subcutaneous tissue Current Visit: Yes Status: Acute Patient seen and examined at bedside today. Patient reports decrease in pain and swelling. Induration on posterior neck receding and noted to be measuring smaller today. Very scant amount of thin purulent drainage expressed from previous I&D site. Continued Scant amount of Serous fluid draining from m ultiple small openings on left side of neck. No major areas of fluctuance noted. No further intervention recommended at this time. Wound culture results positive for MRSA. Recommend continued IV antibiotics per ID recommendations at this time. Qualifiers: Site of cutaneous abscess: neck Qualified Code(s): L02.11 - Cutaneous abscess of neck (2) Cellulitis Current Visit: Yes Status: Acute Area of induration and edema appears to be receding at this time. We will continue to follow for improvement. Continue IV antibiotics per recommendations of ID at this time. Qualifiers: Site of cellulitis: neck Qualified Code(s): L03.221 - Cellulitis of neck Subjective Patient reports: feels better, pain is less Objective Initial Vital Signs Temp Pulse Resp BP Pulse Ox 99.1 F 91 20 152/96 97 04/28/18 13:43 04/28/18 13:43 04/28/18 13:43 04/28/18 13:43 04/28/18 13:43 - General physical appearance well developed, well nourished, no distress - Eyes PERRL, normal ocular movement - ENT CN 2-12 grossly intact - Neck trachea midline, other (decreased area of Induration and erythema of the posterior neck measuring approximately 9 cm x 5 cm noted. scant amount of thin purulent drainage expressed from previous right I&D site. scant amount of serous drainage noted to left side of neck. No major areas of fluctuance noted. ) - Respiratory normal expansion, normal respiratory effort - Psychiatric oriented to time, oriented to person, oriented to place, speech is normal - Labs 05/01/18 02:27 05/01/18 02:27 Consult Discharge Plan - Plan Referrals: Ruperto Clark MD [Primary Care Provider] -
[2018-05-02] MEDS ORDERED: Fenofibrate 54 MG TABLET PO SCH (09:00)
--- NOTE | 2018-05-02 11:37 | Infectious Disease Consult ---
Date of Encounter: 05/01/18 Time of Encounter: 11:31 Assessment and Plan (1) Sepsis Status: Acute Assessment and plan: On admission patient had fevers, echocardiogram and leukocytosis Secondary to cellulitis and skin and soft tissue abscess Improved Qualifiers: Sepsis type: sepsis due to unspecified organism Qualified Code(s): A41.9 - Sepsis, unspecified organism (2) Abscess of skin or subcutaneous tissue Status: Acute Assessment and plan: CT on 04/28/2018 revealed cellulitis from the occiput to C5 with fluid collection superficially Status post I&D by ENT on 04/29/2018 thick purulent material Intra-Op cultures so far positive for MRSA Patient currently on vancomycin and cefepime and oral doxycycline Continue vancomycin while inpatient, DC cefepime and doxycycline Once patient ready for discharge, switching to oral doxycycline for 14 days Follow-up on anaerobic culture Please place in contact isolation Qualifiers: Site of cutaneous abscess: neck Qualified Code(s): L02.11 - Cutaneous abscess of neck (3) Cellulitis Status: Acute Qualifiers: Site of cellulitis: neck Qualified Code(s): L03.221 - Cellulitis of neck (4) CAD (coronary artery disease) Status: Chronic Qualifiers: Coronary Disease-Associated Artery/Lesion type: [place] artery [place] vs. transplanted heart: [place] heart Associated angina: without angina Qualified Code(s): I25.10 - Atherosclerotic heart disease of [place] coronary artery without angina pectoris (5) HTN (hypertension) Status: Chronic Qualifiers: Hypertension type: essential hypertension Qualified Code(s): I10 - Essential (primary) hypertension (6) Morbid obesity Status: Chronic (7) Diabetes mellitus Status: Chronic Qualifiers: Diabetes mellitus type: type 2 Diabetes mellitus prison insulin use: without terminal operator use Diabetes mellitus complication status: without complication Qualified Code(s): E11.9 - Type 2 diabetes mellitus without complications Infectious Disease HPI - Data of Consult Patient: new to practice Consult date: 05/01/18 Requesting Physician: Ana Alejandra MD Primary Care Provider: Ruperto Clark MD - Consult Narrative Reason for consult: Cervical abscess History of present illness: Mr. Goodman is a 48 year old male Patient is a 48-year-old gentleman who presented to [place] on 04/28/2018 with abscess of skin and subcutaneous tissue of the neck, we are consulted today for antibiotics recommendations. Patient is a 48-year-old gentleman with past medical history mentioned below including coronary artery disease with history of angioplasty stent placement about 3 years ago, hypertension, dyslipidemia and questionable obstructive sleep apnea and morbid obesity apparently was in the usual state of health until a few days prior to admission where he was having swelling pain and redness in the posterior cervical spine and lower occipital area. Patient denied any fevers or chills. Denied any headache. Denies any neck stiffness. Denied any chest pain or shortness of breath. Denied any other symptoms. Patient was admitted for further evaluation. Since admission, patient was febrile with a MAXIMUM TEMPERATURE of 101.1 Fahrenheit, tachycardic. Resenting WBC was 11.9 and creeped up to 13.4 on day 1. Normal differential no bandemia. Rest of the labs showed normal chemistry and normal kidney function. Patient had blood cultures 4 all of which are no growth to date. A CT of the neck was obtained which revealed (extensive cellulitis on the posterior midline of the neck extending from the occipital down to the level of C5 there may be a small abscess noted along the dorsal midline of the skin, at the level of C1-C2 measuring approximately 655 mm. There are several prominent bilateral posterior triangle lymph nodes presumably reactive and the right mastoid effusion. I did receive a phone call from the hospitalists asking for a consultation on Tuesday and I asked him to call ENT see if they are comfortable I&D the lesion and if not we need to transfer out where there is plastics. Patient did speak with ENT and they are comfortable apparently and they came and they I&D the per the abscess and sent for cultures. ENT no reveals thick purulent drainage was obtained and necrotic tissue was mechelle rided. Cultures were sent for aerobic and anaerobic. So far cultures are growing MRSA. We were asked to evaluate the patient's make further recommendations. Currently patient appears comfortable sitting in bed states he significantly. Better is the only today. He said as of yesterday was still not feeling well. He tells me that the swelling has decreased and his pain is significantly improv ed. Rest of the review of system is unremarkable. CC: Ana Alejandra MD Past Med Surg Social Fam HX - Past Medical History Medical history: coronary artery disease, hyperlipidemia, hypertension, myocardial infarction Psychiatric history: no psych history - Past Surgical History Additional surgical history: STENT - Social History Smoking Status: Never smoker Smokeless Tobacco Status: No Alcohol use: occasionally Drug use: none - Family History Mother Adopted: No Family Member Ethnicity: Non- Living Status: Still Living Hx Family Cardiac Disorders: No Hx Family Respiratory Disorders: No Hx Family Cancer: No Hx Family GI Disorders: No Hx Family Endocrine Disorder: No Hx Family Neuromuscular Disorders: No Hx Family Neurologic Disorders: No Hx Family HEENT Disorders: No Hx Family Autoimmune Disorders: No Infectious Disease-CN:Meds Aspirin [Adult Aspirin Regimen] 81 mg PO DAILY 02/11/15 [History] Carvedilol 12.5 mg PO BID 02/11/15 [History] Atorvastatin Calcium [Lipitor] 20 mg PO DAILY 04/28/18 [History] Fenofibrate [Tricor] 54 mg PO DAILY 04/28/18 [History] Sulfamethoxazole/Trimeth DS [Bactrim Ds] 1 tab PO BID 04/28/18 [History] Allergy/AdvReac Type Severity Reaction Status Date / Time No Known Allergies Allergy Verified 04/28/18 13:43 Review of systems: 10 point review of systems done, negative other for what is mentioned in history of present illness. Exam - Constitutional Vitals: Temp Pulse Resp BP Pulse Ox 98.2 F 75 16 118/68 96 05/02/18 11:14 05/02/18 11:14 05/02/18 11:14 05/02/18 11:14 05/02/18 11:14 General appearance: cooperative, no acute distress, no febrile - Head Head exam: Present: atraumatic, normocephalic - Eye Eye exam: Present: EOMI, PERRL - ENT ENT exam: Present: mucous membranes dry Additional comments: No lesions noted - Neck Neck exam: Absent: meningismus Additional comments: Large area about 8-9 cm in length and about 4 cm in width that appears like really bad folliculitis with swelling and some serous drainage noted. Not re ally warm to touch and not much discoloration from the baseline skin color - Respiratory Respiratory exam: Present: CTAB. Absent: wheezes - Cardiovascular Cardiovascular exam: Present: RRR, +S1, +S2 - GI/Abdominal GI/Abdominal exam: Present: normal bowel sounds, soft. Absent: tenderness - Extremities Exam Extremities exam: Present: full ROM, normal inspection - Back Exam Back exam: Present: normal inspection. Absent: vertebral tenderness - Neurological Exam Neurological exam: Present: alert, oriented X3. Absent: speech deficit Infectious Disease CN: Results - Labs CBC & Chem 7: 05/01/18 02:27 05/01/18 02:27 Cultures: Cultures 04/29/18 18:45 Wound Culture - Final Neck Methicillin Resistant S.aureus 04/28/18 17:54 Blood Culture - Preliminary Peripheral Venipuncture Culture is incubating and being continuously monitored for growth. Final report to follow. 04/28/18 17:54 Blood Culture - Preliminary Peripheral Venipuncture Culture is incubating and being continuously monitored for growth. Final report to follow. 04/28/18 14:51 Blood Culture - Preliminary Peripheral Venipuncture Culture is incubating and being continuously monitored for growth. Final report to follow. 04/28/18 14:41 Blood Culture - Preliminary Peripheral Venipuncture Culture is incubating and being continuously monitored for growth. Final report to follow. Consult Discharge Plan - Plan Referrals: Ruperto Clark MD [Primary Care Provider] -
--- NOTE | 2018-05-02 14:47 | Internal Med Progress Note ---
Hospitalist Progress Note - Encounter Date of Encounter: 05/02/18 Time of Encounter: 14:44 - Subjective Interval History: Patient had significant amount of purulent drainage from neck abscess overnight . He is to decrease pain and swelling in the neck. No fever overnight. Patient denies fever chills nausea vomiting headache dizziness chest pain shor tness of breath cough urinary bowel complaint - Exam Vitals: Temp Pulse Resp BP Pulse Ox 98.2 F 75 16 118/68 96 05/02/18 11:14 05/02/18 11:14 05/02/18 11:14 05/02/18 11:14 05/02/18 11:14 Exam: PHYSICAL EXAMINATION: GENERAL APPEARANCE: The patient is alert, oriented and in no acute distress. HEENT: PERRLA EOMI NECK: Posterior neck -induration and erythema measuring approximately 9-5 cm with no fluctuation that is scant amount of serous drainage hooting through multiple opening of the abscess. Neck supple and trachea midline. HEART: Regular rate and rhythm. LUNGS: Clear to auscultation bilaterally ABDOMEN: Soft, nontender, nondistended with good bowel sounds heard. EXTREMITIES: No edema NEUROLOGICAL: No focal neurological deficit. - Assessment and Plan (1) Cellulitis Current Visit: Yes Status: Acute Assessment and Plan: In the neck, failed outpatient therapy. Patient is on doxycycline, cefepime and vancomycin. Blood culture MRSA. Reviewed the ID note-he recommended to continue vancomycin while inpatient cefepime and discharge patient on doxycycline. Reviewed ENT note as well. Pain is better controlled. Incision and drainage was performed on 04/29/2018. - Based on patient travel history, cutaneous fungal infection was also suspected, tests for 1,3-glucan, histoplasmosis and bastomycosis also ordered- awaiting report. Patient is improving but still has purulent drainage, also had history of failed outpatient therapy therefore I discussed with patient and decided to keep him overnight to continue IV antibiotic vancomycin while de-escalating antibiotic. Will reevaluate patient tomorrow if he continue to improve then plan to discharge him on doxycycline tomorrow. (2) CAD (coronary artery disease) Current Visit: No Status: Chronic Assessment and Plan: Stable, continue home medication for CAD including aspirin and Plavix, continue risk factor modification including BP control, weight control, cholesterol control. (3) HTN (hypertension) Current Visit: No Status: Chronic Assessment and Plan: BP controlled, continue home medications. (4) Morbid obesity Current Visit: No Status: Chronic Assessment and Plan: Weight control. (5) Hyperlipidemia Current Visit: No Status: Chronic Assessment and Plan: Raised triglyceride level therefore increase atorvastatin 40 mg daily and also increase TriCor 162 mg daily. (6) Diabetes mellitus Current Visit: No Status: Chronic Assessment and Plan: A1c 6.4, diabetes education discussed with patient, diet and weight control. Started metformin 500 mg by mouth twice a day and further management as per PCP. DVT Prophylaxis: Ambulating - Time Spent with Patient Total time spent is greater than 50% in coordination of care (as documented) at patient's floor/unit and/or counseling patient: 25 - 35 minutes (Discuss plan with patient, case management and end user consultant) Internal Medicine: Result - Labs CBC & Chem 7: 05/01/18 02:27 05/01/18 02:27 Consult Discharge Plan - Plan Referrals: Ruperto Clark MD [Primary Care Provider] - _ (1) Cellulitis Qualifiers: Site of cellulitis: neck Qualified Code(s): L03.221 - Cellulitis of neck (2) CAD (coronary artery disease) Qualifiers: Coronary Disease-Associated Artery/Lesion type: [place] artery [place] vs. transplanted heart: [place] heart Associated angina: without angina Qualified Code(s): I25.10 - Atherosclerotic heart disease of [place] coronary artery without angina pectoris (3) HTN (hypertension) Qualifiers: Hypertension type: essential hypertension Qualified Code(s): I10 - Essential (primary) hypertension (5) Hyperlipidemia Qualifiers: Hyperlipidemia type: pure hypercholesterolemia Qualified Code(s): E78.00 - Pure hypercholesterolemia, unspecified; E78.0 - Pure hypercholesterolemia (6) Diabetes mellitus Qualifiers: Diabetes mellitus type: type 2 Diabetes mellitus termite control technician insulin use: without termite control technician use Diabetes mellitus complication status: without complication Qualified Code(s): E11.9 - Type 2 diabetes mellitus without complications
--- NOTE | 2018-05-02 16:35 | Event Note ---
Date of Encounter: 05/02/18 Time of Encounter: 16:33 Patient seen and examined. Patient with improvement of his posterior neck cellulitis. No current drainage from previous I&D site and no drainage from area that spontaneously started draining yesterday. Patient continues to improve. Cultures were reviewed. Patient with MRSA. Discussed with hospitalist that ENT to sign off as no further surgical intervention is needed. Patient to follow up with PCP after discharge.
[2018-05-02] MEDS: *HR* Metformin 500 MG TABLET PO SCH (16:49)
[2018-05-03 03:56] LABS: Basophils # 0.1 K/mcL (0.0-0.2); Basophils % 0.6 %; Eosinophils # 0.4 K/mcL (0.0-0.6); Eosinophils % 4.5 %; Hematocrit 37.4 % (37.5-50.1); Immature Granulocytes % 1.1 % (0-4); Lymphocytes % 23.5 %; Mean Corpuscular HGB Conc 34.8 g/dL (31.6-35.5); Mean Corpuscular Hemoglobin 29.8 pg (28.0-33.3); Mean Corpuscular Volume 85.8 fL (83.0-100.0); Mean Platelet Volume 8.9 fL (9.4-12.4); Monocytes # 0.7 K/mcL (0.0-1.3); Monocytes % 8.2 %; Neutrophils # 5.2 K/mcL (1.6-8.9); Platelet Count 241 K/mcL (140-400); Red Blood Count 4.36 M/mcL (4.19-5.50); Red Cell Distribution Width 12.1 % (11.5-14.5); Segmented Neutrophils % 62.1 %
[2018-05-03 05:09] LABS: BUN/Creatinine Ratio 15 (6-26); Blood Urea Nitrogen 14 mg/dL (6-20); Calcium 9.3 mg/dL (8.6-10.3); Carbon Dioxide 26 mEq/L (23-29); Chloride 104 mEq/L (98-107); Glucose 126 mg/dL (70-105); Osmolality,Calculated 286 (280-300); Sodium 137 mEq/L (136-145); eGFR For Non-African Americans > 60 (> 60)
[2018-05-03] MEDS: Aspirin Enteric Coated 81 MG Tablet PO SCH (08:01)
[2018-05-03] MEDS: *HR* Metformin 500 MG TABLET PO SCH (08:01)
[2018-05-03] MEDS ORDERED: Fenofibrate 54 MG TABLET PO SCH (09:00)
--- NOTE | 2018-05-03 10:07 | Discharge Summary ---
- NOTES TO OUTPATIENT PROVIDER Notes to Outpatient Provider: Follow-up with PCP in 3-5 [id number] Final anaerobic culture report,tests for 1,3-glucan, histoplasmosis and bastomycosis. Complete the course of doxycycline for 14 days. Fasting lipid profile in 3 [id number] with PCP. Diabetes management as per PCP. Diabetes supply upon discharge Orders not resulted at time of discharge: Pending orders 04/28/18 14:51 Culture,Blood [BC] Stat 04/28/18 17:54 Culture,Blood [BC] Routine 04/29/18 18:45 Culture,Anaerobic [RM] Routine 04/30/18 09:55 Blastomyces dermatitidis Ab ID Routine Fungitell (1,3)-[id number] Routine 04/30/18 15:20 Histoplasma galactomannan,Ur Routine Date of Encounter: 05/03/18 Time of Encounter: 10:05 - Discharge Diagnosis (1) Cellulitis Priority: Primary Status: Acute Assessment and Plan: In the neck, failed outpatient therapy. During his stay Patient was on doxycycline, cefepime and vancomycin. Blood culture MRSA. ID was consulted who advise patient to discharge on doxycycline for a total 14 days. ENT was consulted. Incision and drainage was performed on 04/29/2018. - Based on patient travel history, cutaneous fungal infection was also suspected, tests for 1,3-glucan, histoplasmosis and bastomycosis also ordered by previous attending provider and is still awaiting [id number] with PCP Qualifiers: Site of cellulitis: neck Qualified Code(s): L03.221 - Cellulitis of neck (2) CAD (coronary artery disease) Priority: Secondary Status: Chronic Assessment and Plan: Stable, continue home medication for CAD including aspirin and Plavix, continue risk factor modification including BP control, weight control, cholesterol control. Qualifiers: Coronary Disease-Associated Artery/Lesion type: [place] artery [place] vs. transplanted heart: [place] heart Associated angina: without angina Qualified Code(s): I25.10 - Atherosclerotic heart disease of [place] coronary artery without angina pectoris (3) HTN (hypertension) Priority: Secondary Status: Chronic Assessment and Plan: BP controlled, continue home medications. Qualifiers: Hypertension type: essential hypertension Qualified Code(s): I10 - Essential (primary) hypertension (4) Morbid obesity Priority: Secondary Status: Chronic Assessment and Plan: Weight control. (5) Hyperlipidemia Priority: Primary Status: Chronic Assessment and Plan: Raised triglyceride level therefore increase atorvastatin 40 mg daily and also increase TriCor 162 mg daily. Follow fasting lipid profile in 3 months with PCP Qualifiers: Hyperlipidemia type: pure hypercholesterolemia Qualified Code(s): E78.00 - Pure hypercholesterolemia, unspecified; E78.0 - Pure hypercholesterolemia (6) Diabetes mellitus Priority: Primary Status: Chronic Assessment and Plan: Prediabetes. A1c 6.4, diabetes education discussed with patient, diet and weight control. Started metformin 500 mg by mouth daily. Patient is prediabetic but also has metabolic syndrome therefore decided to start low-dose metformin and further management as per primary care physician. Diabetes supply given to the patient. Qualifiers: Diabetes mellitus type: type 2 Diabetes mellitus shelter insulin use: without superintendent marine oil terminal use Diabetes mellitus complication status: without complication Qualified Code(s): E11.9 - Type 2 diabetes mellitus without complications Hospital course: Mr. Goodman is a 48 year old male patient got admitted for the management of neck abscess with failed outpatient therapy. Broader spectrum IV antibiotic is started and consulted ENT and ID specialist. Wound culture MRSA positive. Please see details in diagnosis section of discharge summary. Will discharge patient on doxycycline for a total 14 days. At the time of discharge patient is hemodynamically stable, with flexibility and neck with no drainage and last 24-hour, no associated systemic sign and symptom, ambulating well and tolerating oral diet. Discharge discussed with: patient, nurse, social work, weight loss sales consultant - Time Spent with Patient Total time spent providing and/or coordinating discharge services: Less than 30 minutes - Discharge Medications Prescriptions: Atorvastatin [Lipitor] 40 mg PO HS #30 tablet Doxycycline 100 mg PO BID #28 capsule Fenofibrate [Tricor] 162 mg PO DAILY #30 tablet Losartan [Cozaar] 25 mg PO DAILY #30 tablet metFORMIN [Glucophage] 500 mg PO DAILY #30 tablet Home Medications: Aspirin [Adult Aspirin Regimen] 81 mg PO DAILY 02/11/15 [History] Carvedilol 12.5 mg PO BID 02/11/15 [History] Atorvastatin [Lipitor] 40 mg PO HS #30 tablet 05/03/18 [Rx] Doxycycline 100 mg PO BID #28 capsule 05/03/18 [Rx] Fenofibrate [Tricor] 162 mg PO DAILY #30 tablet 05/03/18 [Rx] Losartan [Cozaar] 25 mg PO DAILY #30 tablet 05/03/18 [Rx] metFORMIN [Glucophage] 500 mg PO DAILY #30 tablet 05/03/18 [Rx] Allergies/Adverse Reactions: Allergy/AdvReac Type Severity Reaction Status Date / Time No Known Allergies Allergy Verified 04/28/18 13:43 Date of admission: 04/28/18 17:05 Primary care physician: Ruperto Clark MD Consults: 04/29/18 08:47 Consult to Infectious Diseases [CONS] Routine Consulting Provider: Infectious Disease As[place] Reason for Consult: neck cellulits, failed treatment Call Completed: Yes 04/29/18 11:37 Consult to ENT [CONS] Routine Consulting Provider: ENT Ashtyn Reason for Consult: back of neck lump, cellulitis Call Completed: Yes - Constitutional Vitals: Temp Pulse Resp BP Pulse Ox 98.3 F 70 15 122/78 97 05/03/18 07:14 05/03/18 07:14 05/03/18 07:14 05/03/18 07:14 05/03/18 07:59 General appearance: Present: A&O X 3, obese Exam: PHYSICAL EXAMINATION: GENERAL APPEARANCE: The patient is alert, oriented and in no acute distress. HEENT: PERRLA EOMI NECK: Posterior neck -induration and erythema receding significantly with no drain. Neck supple and trachea midline. HEART: Regular rate and rhythm. LUNGS: Clear to auscultation bilaterally ABDOMEN: Soft, nontender, nondistended with good bowel sounds heard. EXTREMITIES: No edema NEUROLOGICAL: No focal neurological deficit. - Patient Status Disposition: Home, Self-Care Condition: Good Overall status at discharge: patient is progressing back to baseline - Discharge Instructions Instructions: Cellulitis (GEN) Follow Up With: Ruperto Clark MD [Primary Care Provider] - - Diet and Activity Activity: increase activity as tolerated Diet: diabetic diet, low fat, low cholesterol, low salt diet
[2018-05-03 10:21] VITALS: BP 118/73
[2018-05-03] MEDS ORDERED: Aminoglycoside Consult 1 EACH MC ONE (12:33)
[2018-05-03] MEDS ORDERED: Doxycycline 100 MG CAPSULE PO SCH (21:00)
--- NOTE | 2018-05-04 10:53 | Infectious Disease Progress No ---
Date of Encounter: 05/03/18 Time of Encounter: 10:51 - Assessment and Plan (1) Sepsis Status: Acute On admission patient had fevers, echocardiogram and leukocytosis Secondary to cellulitis and skin and soft tissue abscess Improved Qualifiers: Sepsis type: sepsis due to unspecified organism Qualified Code(s): A41.9 - Sepsis, unspecified organism (2) Abscess of skin or subcutaneous tissue Status: Acute CT on 04/28/2018 revealed cellulitis from the occiput to C5 with fluid collec tion superficially Status post I&D by ENT on 04/29/2018 thick purulent material Intra-Op cultures so far positive for MRSA Patient currently on vancomycin and cefepime and oral doxycycline Continue vancomycin while inpatient, DC cefepime and doxycycline Once patient ready for discharge, switching to oral doxycycline for 14 days Follow-up on anaerobic culture Please place in contact isolation Qualifiers: Site of cutaneous abscess: neck Qualified Code(s): L02.11 - Cutaneous abscess of neck (3) Cellulitis Status: Acute Qualifiers: Site of cellulitis: neck Qualified Code(s): L03.221 - Cellulitis of neck (4) CAD (coronary artery disease) Status: Chronic Qualifiers: Coronary Disease-Associated Artery/Lesion type: [place] artery [place] vs. 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 Doing great clinically. Sitting up in bed. Does not appear toxic. No pain in the head or cervical spine. Still have some mild serous drainage. Denies any diarrhea. No urinary symptoms. No chest pain or cough or shortness of breath. Vital signs noted Cultures reviewed Labs reviewed Infect Dis PN-Objective Data - Labs CBC & Chem 7: 05/03/18 03:21 05/03/18 04:29 Labs: Laboratory Results - last 24 hr 12/07/1704/30/18 05/02/18 09:55 15:20 20:22 POC Glucose 123 H U Histopl Galactoman Ag NOT DETECTED U Histopl Galact Ant Int NOT DETECTED Beta-(1,3)-D-Glucan <31 B-(1,3)-D-Glucan Intrp NEGATIVE 05/03/18 07:14 POC Glucose 119 H U Histopl Galactoman Ag U Histopl Galact Ant Int Beta-(1,3)-D-Glucan B-(1,3)-D-Glucan Intrp Cultures: Cultures 04/28/18 17:54 Blood Culture - Final Peripheral Venipuncture No growth. Final report. 04/28/18 17:54 Blood Culture - Final Peripheral Venipuncture No growth. Final report. 04/28/18 14:51 Blood Culture - Final Peripheral Venipuncture No growth. Final report. 04/28/18 14:41 Blood Culture - Final Peripheral Venipuncture No growth. Final report. 04/29/18 18:45 Anaerobic Culture - Preliminary Neck At this time, no anaerobic growth is present. The culture will be finalized after 5 days of incubation. 04/29/18 18:45 Wound Culture - Final Neck Methicillin Resistant S.aureus Serology 04/30/18 04/30/18 Range/Units 15:20 09:55 U Histopl Galactoman Ag NOT DETECTED ng/mL U Histopl Galact Ant Int NOT DETECTED (Not Detected) Beta-(1,3)-D-Glucan <31 pg/mL B-(1,3)-D-Glucan Intrp NEGATIVE (Negative) Exam - Constitutional Vitals: Temp Pulse Resp BP Pulse Ox 98.6 F 82 15 118/73 97 05/03/18 10:20 05/03/18 10:20 05/03/18 10:20 05/03/18 10:20 05/03/18 10:20 General appearance: no acute distress, no febrile - Head Head exam: Present: atraumatic, normocephalic Additional comments: There is some edema and significant folliculitis on the occipital part of the head with some serous drainage still. But significantly improved from admission - Respiratory Respiratory exam: Present: CTAB. Absent: wheezes - Cardiovascular Cardiovascular exam: Present: RRR, +S1, +S2 Consult Discharge Plan - Plan Instructions: Doxycycline (By mouth), Losartan (By mouth), Metformin (By mouth), Atorvastatin (By mouth), Fenofibrate (By mouth), Cellulitis (GEN) Referrals: Ruperto Clark MD [Primary Care Provider] - 05/10/18 1:00 pm Prescriptions: Atorvastatin [Lipitor] 40 mg PO HS #30 tablet Doxycycline 100 mg PO BID #28 capsule Fenofibrate [Tricor] 162 mg PO DAILY #30 tablet Losartan [Cozaar] 25 mg PO DAILY #30 tablet metFORMIN [Glucophage] 500 mg PO DAILY #30 tablet
== END 2018-05-03 12:34 | disposition home or self-care (01) | DRG 854 ==
LOC: 3BNU 13:41 → EMEROOARM 13:41 → 3ANU 16:45
PROVIDERS: ADMIT Internal Medicine Cardiovascular Disease; ATTEND Internal Medicine Cardiovascular Disease